=== PATIENT | female | born 1960 | race Two or more races ===

== ENCOUNTER 2020-12-21 14:33 | Inpatient (IN) | payer MEDICAID ==
[~2020-12-21] VITALS: Ht 152.4 cm; Wt 48.1 kg
--- NOTE | 2020-12-21 14:50 | NUR ---
MD at bedside for assessment, patient brought in by ambulance service
[2020-12-21 15:08] LABS: HEMATOCRIT 33.2 % (31.2-41.9); MEAN CORPUSCULAR HEMOGLOBIN 29.9 uug (24.7-32.8); MEAN CORPUSCULAR VOLUME 88.8 fL (75.5-95.3); PLATELET COUNT (AUTO) 358 K/uL (179-408)
[2020-12-21 15:12] LABS: CARBON DIOXIDE 28 mmol/L (21-32); CHLORIDE 107 mmol/L (98-107); CREATININE 0.6 mg/dL (0.6-1.3); GLUCOSE 94 mg/dL (74-106); POTASSIUM 3.7 mmol/L (3.5-5.1); UREA NITROGEN, BLOOD 19 mg/dL (7-18)
[2020-12-21 15:16] LABS: ETHANOL < 3 MG/DL (0-0)
[2020-12-21 15:17] LABS: ALANINE AMINOTRANSFERASE 22 U/L (14-59); ALKALINE PHOSPHATASE 93 U/L (50-136); ASPARTATE AMINOTRANSFERASE 13 U/L (15-37); BILIRUBIN,DIRECT 0.1 mg/dL (0.0-0.2); BILIRUBIN,TOTAL 0.1 mg/dL (0.2-1.0)
[2020-12-21 15:18] LABS: ACETAMINOPHEN < 2.0 ug/mL (10-30)
--- NOTE | 2020-12-21 16:37 | NUR ---
Dr Buchanan paged re: Disposition. [facility] will call back.
[2020-12-21] MEDS ORDERED: OLAN2.5T27 PO (17:04)
[2020-12-21] MEDS ORDERED: FAMO-132 PO (17:04)
[2020-12-21] MEDS ORDERED: MAGN400O6 PO (17:07)
[2020-12-21] MEDS ORDERED: BISA10SU61 RC (17:07)
[2020-12-21] MEDS ORDERED: ASPI-869 PO (17:07)
[2020-12-21] MEDS ORDERED: DOCU250C14 PO (17:07)
[2020-12-21] MEDS ORDERED: MULT-594 PO (17:07)
[2020-12-21] MEDS ORDERED: OLAN5TAB30 PO (17:07)
--- NOTE | 2020-12-21 17:24 | NUR ---
Patient given dinner at this time, tolerated meal without difficulty
[2020-12-21] MEDS ORDERED: IV NORMAL SALINE 1000 ML BAG IV ONE (17:45)
--- NOTE | 2020-12-21 19:30 | NUR ---
Patient requesting food to consume. Food tray provided, ok per MD Duggan.
--- NOTE | 2020-12-21 20:50 | NUR ---
Report given to OSCAR Arguelles.
--- NOTE | 2020-12-21 21:00 | NUR ---
Pt. admitted to med-surg room 304, under care of Dr. Buchanan. Belongs List completed
[2020-12-21 22:00] VITALS: BP 99/70
[2020-12-21] MEDS ORDERED: ONDANSETRON 4 MG/2 ML VIAL IV PRN (22:30)
[2020-12-21] MEDS ORDERED: Z GUARD REMEDY PASTE 57 GM TUBE TOP PRN (22:30)
[2020-12-21] MEDS ORDERED: ACETAMINOPHEN 325 MG TABLET PO PRN (22:30)
[2020-12-21] MEDS ORDERED: MAGNESIUM HYDROXIDE 30 ML LIQUID UDC PO PRN (22:45)
[2020-12-21] MEDS ORDERED: BISACODYL 10 MG SUPP.RECT RC PRN (22:45)
[2020-12-21] MEDS: ENOXAPARIN SODIUM 40 MG/0.4 ML DISP.SYRIN SQ SCH (23:45)
[2020-12-21] MEDS: IV NS 1000 ML 1,000 ML IV PRN (23:46)
[2020-12-22 04:00] VITALS: BP 91/52
--- NOTE | 2020-12-22 04:04 | NUR ---
Received a 60 yr old [place] female with admitting diagnosis of failure to thrive. AAOx3-4 Patient been having involuntary movements. Able to follow commands. FLOOR INSPECTOR Donavan aware of patient's admission. VSS. IVF NSS @75 cc/hr infusing well via right arm heplock. All needs attended. Incontinent of bowel and bladder.Kept clean and dry. No BM this shift.
[2020-12-22 06:25] LABS: HEMATOCRIT 32.4 % (31.2-41.9); MEAN CORPUSCULAR HEMOGLOBIN 29.2 uug (24.7-32.8); MEAN CORPUSCULAR VOLUME 90.7 fL (75.5-95.3); PLATELET COUNT (AUTO) 299 K/uL (179-408)
[2020-12-22 06:54] LABS: BILIRUBIN,TOTAL 0.2 mg/dL (0.2-1.0); CREATININE 0.7 mg/dL (0.6-1.3); MAGNESIUM 2.3 mg/dL (1.8-2.4); PHOSPHOROUS 4.5 mg/dL (2.5-4.9); POTASSIUM 4.2 mmol/L (3.5-5.1); TOTAL PROTEIN, SERUM 6.2 g/dL (6.4-8.2)
[2020-12-22 07:08] LABS: THYROID STIMULATING HORMONE 3.572 mIU/mL (0.358-3.740)
[2020-12-22 09:00] VITALS: BP 95/59
[2020-12-22] MEDS: FAMOTIDINE 20 MG TABLET PO SCH (09:03)
[2020-12-22] MEDS: ASPIRIN EC 81 MG TABLET.DR PO SCH (09:03)
[2020-12-22] MEDS: DOCUSATE SODIUM 100 MG CAPSULE PO SCH (09:03)
[2020-12-22] MEDS: OLANZAPINE 2.5 MG TABLET PO SCH (09:03)
[2020-12-22] MEDS ORDERED: LORAZEPAM 2 MG/1 ML VIAL IV ONE ×2 (09:15→17:30)
[2020-12-22 12:00] VITALS: BP 94/41
[2020-12-22] MEDS: IV NS 1000 ML 1,000 ML IV PRN (12:40)
[2020-12-22 16:00] VITALS: BP 110/59
[2020-12-22] MEDS: OLANZAPINE 5 MG TABLET PO SCH (17:12)
[2020-12-22] MEDS: ENOXAPARIN SODIUM 40 MG/0.4 ML DISP.SYRIN SQ SCH (22:38)
[2020-12-23] MEDS: IV NS 1000 ML 1,000 ML IV PRN (02:25)
[2020-12-23 04:05] VITALS: BP 129/58
[2020-12-23 07:13] LABS: MEAN CORPUSCULAR HEMOGLOBIN 29.7 uug (24.7-32.8); MEAN CORPUSCULAR VOLUME 88.8 fL (75.5-95.3); PLATELET COUNT (AUTO) 332 K/uL (179-408)
[2020-12-23 07:23] LABS: CREATININE 0.5 mg/dL (0.6-1.3); POTASSIUM 3.9 mmol/L (3.5-5.1)
--- NOTE | 2020-12-23 07:30 | NUR ---
Patient received in bed with eyes open, alert and oriented to self. Patient has a right forearm 22G IV that is intact running IVF at 75 mL/h with no redness or swelling noted at this time. Patient on room air with no SOB or difficulties breathing. No acute distress noted at this time. Fall precautions in place. Call light and personal belongings within easy reach. Will continue to monitor.
[2020-12-23] MEDS: ASPIRIN EC 81 MG TABLET.DR PO SCH (08:08)
[2020-12-23] MEDS: OLANZAPINE 2.5 MG TABLET PO SCH (08:08)
[2020-12-23] MEDS: DOCUSATE SODIUM 100 MG CAPSULE PO SCH (08:08)
[2020-12-23] MEDS: FAMOTIDINE 20 MG TABLET PO SCH (08:08)
[2020-12-23] MEDS: LORAZEPAM 2 MG/1 ML VIAL IV PRN (08:28)
--- NOTE | 2020-12-23 08:28 | NUR ---
Patient becoming restless and seems to be becoming more anxious, Ativan administered as ordered.
--- NOTE | 2020-12-23 09:45 | NUR ---
Patient's bed alarm went off at 9:30AM and was found on the floor of her room. Patient assessed with no new findings and vitals were: BP 100/58 HR 87 O2 sat 97% on RA. Patient states she has no pain at this time and no acute distress noted at this time. Helped patient back into bed and [facility] provider Dr. Go notified with new orders for 1:1 sitter. The nursing office was notified of the new order. Fall precautions in place. Incident report was filed.
[2020-12-23 11:28] VITALS: BP 106/65
--- NOTE | 2020-12-23 13:00 | NUR ---
Sitter now at bedside. Fall precautions in place. Call light and personal belongings within easy reach. Patient in bed with eyes closed, easily arousable. No acute distress noted at this time. Will continue to monitor.
[2020-12-23 15:32] VITALS: BP 96/63
[2020-12-23] MEDS: ENSURE ENLIVE (VAN) 240 ML LIQUID PO SCH (17:12)
--- NOTE | 2020-12-23 17:28 | NUR ---
received report from nurse, pt in chair watching TV with sitter at bedside. pt on room air, no signs of distress, no reports of pain, call light within reach. IV on the right FA 22g infusing NS at 75ml/hr. will continue to monitor.
[2020-12-23] MEDS: OLANZAPINE 5 MG TABLET PO SCH (18:44)
--- NOTE | 2020-12-23 18:54 | NUR ---
pt sleeping in bed, easily arousable. sitter at bedside. all medications given as ordered, UA obtained and sent to lab. no reports of pain, all needs met this shift, call light within reach, will endorse to oncoming nurse.
--- NOTE | 2020-12-23 19:10 | NUR ---
Patient report received. Patient seen in bed resting. Easily arousable. Alert and oriented x 1-2. Skin intact, bilateral bruising on the knees. On room air, no reports of shortness of breath at this time. Patient is continent. Has an IV on LFA 22g running NS at 75 cc/hr. Bed in low and locked position. Safety and fall precautions in place. Patient has a 1:1 sitter. Will continue to monitor.
[2020-12-23 19:28] VITALS: BP 95/54
[2020-12-23 22:29] LABS: *BILIRUBIN,URIN NEGATIVE (NEGATIVE); *BLOOD, URINE 1+ (NEGATIVE); *CLARITY,URINE CLEAR (CLEAR); *COLOR,URINE YELLOW (YELLOW); *KETONES,URINE NEGATIVE (NEGATIVE); *UROBILINOGEN,URINE 0.2 E.U./dl (NORMAL); LEUKOCYTE ESTERASE ,URINE NEGATIVE (NEGATIVE); NITRITE, URINE NEGATIVE (NEGATIVE); UGLUCOSE NEGATIVE (NEGATIVE)
[2020-12-23 22:35] LABS: *AMPHETAMINE, URINE NEGATIVE (NEGATIVE); *CANNABINOID, URINE NEGATIVE (NEGATIVE); *COCCAINE, URINE NEGATIVE (NEGATIVE); *OPIATE, URINE NEGATIVE (NEGATIVE); *PHENCYCLIDINE SCREEN,URINE NEGATIVE (NEGATIVE)
[2020-12-23 22:48] LABS: BACTERIA,URINE FEW /HPF (NONE SEEN); SQUAMOUS EPITHELIAL CELL,UR MODERATE /HPF (NONE SEEN); WBC,URINE 0-3 /HPF (0-3)
[2020-12-23] MEDS: ENOXAPARIN SODIUM 40 MG/0.4 ML DISP.SYRIN SQ SCH (23:05)
[2020-12-23 23:36] VITALS: BP 107/64
--- NOTE | 2020-12-24 05:23 | NUR ---
Patient is sleeping in bed. Constantly moves around. Patient is easily arousable. Patient has a sitter at bedside. Vital signs taken. No reports of pain shortness of breath at this time. Patient is alert and oriented x 1. Bed in low and locked position. Safety and fall precautions in place. Will endorse to on coming shift.
--- NOTE | 2020-12-24 07:30 | NUR ---
Patient received in bed with eyes closed, but easily arousable. Sitter at bedside for safety. Patient has a right forearm 22G IV that is intact running IVF at 75 mL/h with no redness or swelling noted at this time. Patient on room air with no SOB or difficulties breathing. No acute distress noted at this time. Fall precautions in place. Call light and personal belongings within easy reach. Will continue to monitor.
[2020-12-24] MEDS: DOCUSATE SODIUM 100 MG CAPSULE PO SCH (09:13)
[2020-12-24] MEDS: ASPIRIN EC 81 MG TABLET.DR PO SCH (09:13)
[2020-12-24] MEDS: FAMOTIDINE 20 MG TABLET PO SCH (09:13)
[2020-12-24] MEDS: OLANZAPINE 2.5 MG TABLET PO SCH (09:13)
[2020-12-24] MEDS: ENSURE ENLIVE (VAN) 240 ML LIQUID PO SCH ×3 (09:13→17:48)
[2020-12-24 11:34] VITALS: BP 96/61
[2020-12-24] MEDS: IV NS 1000 ML 1,000 ML IV PRN (14:42)
[2020-12-24 15:47] VITALS: BP 101/61
[2020-12-24] MEDS ORDERED: BISACODYL 10 MG SUPP.RECT RC PRN (15:52)
[2020-12-24] MEDS: OLANZAPINE 5 MG TABLET PO SCH (17:46)
--- NOTE | 2020-12-24 19:00 | NUR ---
REPORT RECEIVED FROM AM NURSE MARLENA PT IS ALERT AND RESPONDS TO TACTILE STIMULI NO SIGNS OF RESPIRATORY DISTRESS NOTED. CHECKED G TUBE RESIDUAL 10 ML NO SIGNS OF DISTENTION OR EMESIS NOTED WILL CONTINUE TO MONITOR. Addendum: 12/24/20 at 2236 by REGISTRY [facility] INPATIENT RN1 RN CHARTED ABOVE NOTE ON WRONG PATIENT DISREGARD THE ABOVE NURSES NOTE.
--- NOTE | 2020-12-24 19:00 | NUR ---
RECEIVED REPORT FROM RUIZ MENDIOLA PT RECEIVED ASLEEP SITTER AT BEDSIDE NO SIGN OF DISTRESS NOTED. WILL CONTINUE TO MONITOR.
[2020-12-24 20:00] VITALS: BP 102/61
--- NOTE | 2020-12-24 21:00 | NUR ---
PT WAS GIVEN HS LOVENOX PLATELET 332 NO SIGNS OF BLEEDING NOTED WILL CONTINUE TO MONITOR.
[2020-12-24] MEDS: ENOXAPARIN SODIUM 40 MG/0.4 ML DISP.SYRIN SQ SCH (21:41)
--- NOTE | 2020-12-24 22:34 | NUR ---
CHECKED PT GAVE HS MEDICATION NO SIGNS OF ADVERSE REACTION NOTED. WILL CONTINUE TO MONITOR HOURLY
--- NOTE | 2020-12-25 07:00 | NUR ---
AM REPORT GIVEN TO AM NURSE MELVA AND PT IS CALM FOR NOW.
[2020-12-25 07:21] VITALS: BP 104/58
[2020-12-25] MEDS: LORAZEPAM 2 MG/1 ML VIAL IV PRN (08:39)
[2020-12-25] MEDS: OLANZAPINE 2.5 MG TABLET PO SCH (08:47)
[2020-12-25] MEDS: DOCUSATE SODIUM 100 MG CAPSULE PO SCH (08:47)
[2020-12-25] MEDS: ASPIRIN EC 81 MG TABLET.DR PO SCH (08:47)
[2020-12-25] MEDS: ENSURE ENLIVE (VAN) 240 ML LIQUID PO SCH ×2 (08:47→13:00)
[2020-12-25] MEDS: FAMOTIDINE 20 MG TABLET PO SCH (08:47)
[2020-12-25 12:14] VITALS: BP 96/57
[2020-12-25 16:04] VITALS: BP 103/62
--- NOTE | 2020-12-25 17:57 | NUR ---
Patient discharged to [facility]. AOx1. On room air. No signs of acute distress. IV access removed. ID armband removed. Belongings list accounted for. Discharge documents sent to [facility]. Nursing report given to OSCAR Reeves of [facility]. Patient left via ambulance gurney.
== END 2020-12-25 17:45 | DRG 422 ==
LOC: ER 14:33 → MEDSURG3 20:53
PROVIDERS: ADMIT Hospitalist; ATTEND Hospitalist
DX: E86.0 Dehydration (principal); E43 Unspecified severe protein-calorie malnutrition; G20 Parkinson's disease; E88.09 Other disorders of plasma-protein metabolism, not elsewhere classified; F20.9 Schizophrenia, unspecified; R62.7 Adult failure to thrive; Z68.20 Body mass index [BMI] 20.0-20.9, adult; K21.9 Gastro-esophageal reflux disease without esophagitis; M62.81 Muscle weakness (generalized); R26.81 Unsteadiness on feet; I51.7 Cardiomegaly; Z91.19 Patient's noncompliance with other medical treatment and regimen; F79 Unspecified intellectual disabilities; Z20.822 Contact with and (suspected) exposure to COVID-19
CPT/HCPCS: 36415; 70450; 71045; 83735; 84100; 84443; 85025; 87086; A4663; C1758; G0378; G0480; J1650; J2060; J7030